=== PATIENT | male | born 1960 | race Caucasian/White ===

== ENCOUNTER 2018-12-24 19:07 | Emergency (ER) | payer OTHER ==
[~2018-12-24] VITALS: Ht 185.4 cm; Wt 116.1 kg
[2018-12-24] MEDS ORDERED: ONDANSETRON 2MG/ML, 2ML IVPush ONE (19:30)
[2018-12-24] MEDS ORDERED: KETOROLAC 30 MG/1 ML IVPush ONE (19:30)
[2018-12-24] MEDS ORDERED: MORPHINE SULFATE 4 MG/ML, 1ML IVPush PRN (19:30)
[2018-12-24] MEDS ORDERED: ONDANSETRON 2MG/ML, 2ML ONE (19:31)
[2018-12-24] MEDS ORDERED: KETOROLAC 30 MG/1 ML ONE (19:31)
[2018-12-24] MEDS ORDERED: MORPHINE SULFATE 4 MG/ML, 1ML ONE (19:31)
[2018-12-24 19:38] LABS: BASOPHILS # (AUTO) 0.05 x10^3/uL (0-0.1); BASOPHILS % (AUTO) 1 % (0-1); EOSINOPHILS # (AUTO) 0.33 x10^3/uL (0-0.4); EOSINOPHILS % (AUTO) 3 % (1-7); LYMPHOCYTES # (AUTO) 2.95 x10^3/uL (1-3.4); LYMPHOCYTES % (AUTO) 28 % (22-44); MD NO; MEAN CORPUSCULAR HEMOGLOBIN 28.4 pg (27.5-34.5); MEAN CORPUSCULAR HGB CONC 33.6 g/dL (33.2-36.2); MEAN CORPUSCULAR VOLUME 84.6 fL (81-97); MEAN PLATELET VOLUME 9.5 fL (7.4-10.4); MONOCYTES # (AUTO) 0.74 x10^3/uL (0.2-0.8); MONOCYTES % (AUTO) 7 % (2-9); NEUTROPHILS % (AUTO) 61 % (42-75); PLATELET COUNT 287 x10^3/uL (130-400); RED BLOOD COUNT 4.78 x10^6/uL (4.38-5.82); RED CELL DISTRIBUTION WIDTH 14.7 % (9.4-14.8)
[2018-12-24 19:46] LABS: ALANINE AMINOTRANSFERASE 21 U/L (12-78); ANION GAP 9 mmol/L (5-15); CALCIUM 8.6 mg/dL (8.5-10.1); CHLORIDE 106 mmol/L (98-107)
[2018-12-24 19:47] LABS: MICROSCOPIC AUTO
[2018-12-24 19:48] LABS: ALKALINE PHOSPHATASE 74 U/L (45-117); BILIRUBIN,TOTAL 0.4 mg/dL (0.2-1.0); TOTAL PROTEIN 7.6 g/dL (6.4-8.2)
[2018-12-24 19:49] LABS: CULTURE INDICATED? YES
--- NOTE | 2018-12-24 20:28 | NUR ---
ALL RESULTS BACK, PT FOR RECHECK.
--- NOTE | 2018-12-24 20:40 | NUR ---
HR 45 ON PULSE OX, HEART MONITOR PLACED SHOWING BIGEMINY WITH HR AT 90. PT DENIES CP, ONLY LIGHTHEADED FOLLOWING MORPHINE. 0/10 FLANK PAIN AT THIS TIME. ERP NOTIFIED, EKG COMPLETED AT BS.
[2018-12-24] MEDS ORDERED: CEFTRIAXONE PMX 1GM/50ML 50 ML ONE (21:09)
[2018-12-24] MEDS ORDERED: CEFTRIAXONE PMX 1GM/50ML 50 ML IV ONE (21:30)
[2018-12-24 22:03] VITALS: BP 132/58
== END 2018-12-24 22:05 | disposition home or self-care (01) ==
LOC: ED 20:19
DX: N39.0 Urinary tract infection, site not specified (principal); N20.0 Calculus of kidney; E10.22 Type 1 diabetes mellitus with diabetic chronic kidney disease; I12.9 Hypertensive chronic kidney disease with stage 1 through stage 4 chronic kidney disease, or unspecified chronic kidney disease; N18.9 Chronic kidney disease, unspecified; E78.5 Hyperlipidemia, unspecified; Z88.0 Allergy status to penicillin
CPT/HCPCS: 36415; 74176; 80053; 81001; 85025; 87077; 87086; 87186; 93005; 96365; 96375; 99284; J0696; J1885; J2405

== ENCOUNTER 2018-12-27 02:23 | Inpatient (IN) | payer OTHER ==
[~2018-12-27] VITALS: Ht 185.4 cm; Wt 111.6 kg
[2018-12-27] MEDS ORDERED: ONDANSETRON 2MG/ML, 2ML ONE ×3 (02:47→17:35)
[2018-12-27] MEDS ORDERED: MORPHINE SULFATE 4 MG/ML, 1ML ONE ×2 (02:48→04:42)
[2018-12-27] MEDS ORDERED: ONDANSETRON 2MG/ML, 2ML IVPush ONE (03:00)
[2018-12-27] MEDS: MORPHINE SULFATE 4 MG/ML, 1ML IVPush PRN ×2 (03:02→04:48)
[2018-12-27 03:04] LABS: BASOPHILS # (AUTO) 0.05 x10^3/uL (0-0.1); BASOPHILS % (AUTO) 0 % (0-1); EOSINOPHILS # (AUTO) 0.26 x10^3/uL (0-0.4); EOSINOPHILS % (AUTO) 2 % (1-7); LYMPHOCYTES # (AUTO) 2.04 x10^3/uL (1-3.4); LYMPHOCYTES % (AUTO) 17 % (22-44); MD NO; MEAN CORPUSCULAR HEMOGLOBIN 28.2 pg (27.5-34.5); MEAN CORPUSCULAR HGB CONC 33.7 g/dL (33.2-36.2); MEAN CORPUSCULAR VOLUME 83.9 fL (81-97); MEAN PLATELET VOLUME 9.2 fL (7.4-10.4); MONOCYTES # (AUTO) 0.85 x10^3/uL (0.2-0.8); MONOCYTES % (AUTO) 7 % (2-9); NEUTROPHILS % (AUTO) 73 % (42-75); PLATELET COUNT 251 x10^3/uL (130-400); RED BLOOD COUNT 4.78 x10^6/uL (4.38-5.82); RED CELL DISTRIBUTION WIDTH 14.5 % (9.4-14.8)
--- NOTE | 2018-12-27 03:07 | NUR ---
PT PLACED ON VITALS MONITOR. PT IN HOSPITAL GOWN. IV STARTED, ABLE TO DRAW LABS. PT GOING FOR US AT THIS TIME.
[2018-12-27 03:14] LABS: ALANINE AMINOTRANSFERASE 16 U/L (12-78); ALBUMIN 3.6 g/dL (3.4-5.0); ANION GAP 9 mmol/L (5-15); CALCIUM 8.6 mg/dL (8.5-10.1); CHLORIDE 109 mmol/L (98-107); CREATININE 3.21 mg/dL (0.7-1.3)
[2018-12-27 03:17] LABS: ALKALINE PHOSPHATASE 73 U/L (45-117); BILIRUBIN,TOTAL 0.3 mg/dL (0.2-1.0); TOTAL PROTEIN 7.6 g/dL (6.4-8.2)
[2018-12-27 04:21] LABS: MICROSCOPIC AUTO
[2018-12-27 04:22] LABS: CULTURE INDICATED? YES
[2018-12-27] MEDS ORDERED: METOCLOPRAMIDE 5 MG/ML, 2ML ONE (04:43)
--- NOTE | 2018-12-27 04:54 | NUR ---
PT PLACED ON 2L OF O2 PER N/C DUE TO DESATING TO 87% ON RA AFTER MORPHINE ADMIN. PT NOW SATING 96%. PT CONTINUES TO HAVE CRAMPING PAIN IN RIGHT LOWER ABD. PT MEDICATED WITH ORDERED PAIN MEDS AND NAUSEA MEDS PT ALSO STILL HAVING NAUSEA. BILAT BEDRAILS UP. CALL LIGHT WITHIN REACH. FAMILY AT BEDSIDE. WILL CONTINUE TO MONITOR.
[2018-12-27] MEDS ORDERED: METOCLOPRAMIDE 5 MG/ML, 2ML IVPush ONE (05:00)
[2018-12-27] MEDS ORDERED: AMLO10TA8 PO (06:07)
[2018-12-27] MEDS ORDERED: INSU100I11 INJ (06:07)
[2018-12-27] MEDS ORDERED: TRIA1TAB3 PO (06:07)
[2018-12-27] MEDS ORDERED: METF500T17 PO (06:07)
[2018-12-27] MEDS ORDERED: RANI150T4 PO (06:07)
[2018-12-27] MEDS ORDERED: TADA5TAB2 PO (06:07)
[2018-12-27] MEDS ORDERED: TAMS0.4C2 PO (06:08)
--- NOTE | 2018-12-27 06:09 | NUR ---
PT REPORTS IMPROVEMENT IN PAIN AFTER 2ND DOSE MORPHINE. PT STILL C/O NAUSEA. VSS. PT REMAINS ON 2L O2 PER N/C. BILAT BEDRAILS UP. CALL LIGHT WITHIN REACH.
[2018-12-27] MEDS ORDERED: ONDANSETRON 2MG/ML, 2ML IVPush PRN ×2 (06:30→08:30)
[2018-12-27] MEDS ORDERED: MORPHINE SULFATE 4 MG/ML, 1ML IVPush PRN (06:30)
--- NOTE | 2018-12-27 06:53 | NUR ---
BEDSIDE REPORT TO ELAINE SANCHEZ
--- NOTE | 2018-12-27 06:54 | NUR ---
[facility] PT UPRIGHT ON GURNEY AWAKE & CALM, RESPONDS APPROP TO STAFF, NAD, COMFORT MEASURES PROVIDED, AT BS, CALL LIGHT WITHIN REACH,
--- NOTE | 2018-12-27 07:24 | NUR ---
HOSPITAL BED REQUESTED.
--- NOTE | 2018-12-27 07:47 | NUR ---
PT REMAINS UPRIGHT ON EVAN AWAKE & CALM, RESPONDS APPROP TO STAFF, NAD, COMFORT MEASURES PROVIDED, CALL LIGHT WITHIN REACH. Pt to be admitted to [facility], room 458. Report called to DELMIS.
[2018-12-27] MEDS ORDERED: CEFTRIAXONE 1,000 MG IV SCH (08:00)
[2018-12-27 08:03] VITALS: BP 150/72
--- NOTE | 2018-12-27 08:06 | NUR ---
DR. RIVERS NOTIFIED OF PREVIOUS URINE CULTURE RESULTS
[2018-12-27] MEDS ORDERED: BISACODYL 10 MG SUPP PR PRN (08:30)
[2018-12-27] MEDS ORDERED: DOCUSATE 100 MG CAPSULE PO PRN (08:30)
[2018-12-27] MEDS ORDERED: PHARMACY INSTRUCTION MC SCH (08:30)
[2018-12-27] MEDS ORDERED: morphine SULFATE 10 MG/ML, 1ML IVPush PRN (08:30)
[2018-12-27] MEDS ORDERED: POLYETHYLENE GLYCOL 17 GM PACKET PO PRN (08:30)
[2018-12-27] MEDS ORDERED: LIDODERM 5% PATCH TD PRN (08:30)
[2018-12-27] MEDS ORDERED: ZOLPIDEM 5MG TABLET PO PRN (08:30)
[2018-12-27] MEDS ORDERED: ACETAMINOPHEN 325 MG TABLET PO PRN (08:30)
[2018-12-27] MEDS ORDERED: hydrALAzine 20 MG/ML, 1ML IVPush PRN (08:30)
[2018-12-27] MEDS ORDERED: LABETALOL 5MG/ML, 20ML IVPush PRN (08:30)
[2018-12-27] MEDS ORDERED: ONDANSETRON ODT 4 MG PO PRN (08:30)
[2018-12-27] MEDS: HEPARIN 5,000 UNITS/ML, 1ML SQ SCH ×2 (09:00→17:00)
[2018-12-27] MEDS: AMLODIPINE 10 MG TAB PO SCH (09:00)
[2018-12-27] MEDS: TAMSULOSIN 0.4 MG CAP.ER.24H PO SCH ×2 (09:00→20:19)
[2018-12-27 09:18] LABS: HCT (SEDRATE) 39.6 % (39.2-51.8)
[2018-12-27] MEDS: CEFTRIAXONE PMX 1GM/50ML 50 ML IV SCH ×2 (09:24→20:19)
[2018-12-27] MEDS: SODIUM CHLORIDE 0.9% 1,000 ML IV SCH ×2 (09:25→16:18)
[2018-12-27 09:36] LABS: FREE T4 (FREE THYROXINE) 1.09 ng/dL (0.76-1.46); THYROID STIMULATING HORMONE 4.03 mIU/L (0.358-3.740)
[2018-12-27 10:27] LABS: HEMOGLOBIN A1C 7.1 % (4.2-6.3)
[2018-12-27 12:39] VITALS: BP 156/74
[2018-12-27] MEDS ORDERED: MIDAZOLAM 1 MG/ML, 2ML ONE (16:26)
[2018-12-27] MEDS ORDERED: FENTANYL PF 250 MCG/5ML ONE (16:27)
[2018-12-27] MEDS ORDERED: ROCURONIUM 10MG/ML,5ML ONE (17:35)
[2018-12-27] MEDS ORDERED: SUCCINYLCHOLINE 20 MG/ML, 10ML ONE (17:35)
[2018-12-27] MEDS ORDERED: GLYCOPYRROLATE 0.2MG/1ML, 5ML ONE (17:35)
[2018-12-27] MEDS ORDERED: CEFAZOLIN 1,000 MG ONE (17:35)
[2018-12-27] MEDS ORDERED: PROPOFOL 10 MG/ML, 20ML ONE (17:35)
[2018-12-27] MEDS ORDERED: NEOSTIGMINE 1 MG/ML, 10ML ONE (17:35)
[2018-12-27] MEDS ORDERED: DEXAMETHASONE 4 MG/ML, 1ML ONE (17:35)
[2018-12-27 19:42] VITALS: BP 162/71
[2018-12-28 00:18] VITALS: BP 149/77
[2018-12-28] MEDS: SODIUM CHLORIDE 0.9% 1,000 ML IV SCH ×2 (01:59→15:12)
[2018-12-28] MEDS: HEPARIN 5,000 UNITS/ML, 1ML SQ SCH ×3 (01:59→17:14)
[2018-12-28 04:03] VITALS: BP 138/75
[2018-12-28 05:20] LABS: BASOPHILS # (AUTO) 0.03 x10^3/uL (0-0.1); BASOPHILS % (AUTO) 0 % (0-1); EOSINOPHILS # (AUTO) 0.01 x10^3/uL (0-0.4); EOSINOPHILS % (AUTO) 0 % (1-7); LYMPHOCYTES # (AUTO) 1.04 x10^3/uL (1-3.4); LYMPHOCYTES % (AUTO) 9 % (22-44); MD NO; MEAN CORPUSCULAR HEMOGLOBIN 28.4 pg (27.5-34.5); MEAN CORPUSCULAR HGB CONC 33.7 g/dL (33.2-36.2); MEAN CORPUSCULAR VOLUME 84.2 fL (81-97); MEAN PLATELET VOLUME 9.7 fL (7.4-10.4); MONOCYTES # (AUTO) 0.79 x10^3/uL (0.2-0.8); MONOCYTES % (AUTO) 7 % (2-9); NEUTROPHILS # (AUTO) 9.88 x10^3/uL (1.8-6.8); NEUTROPHILS % (AUTO) 84 % (42-75); PLATELET COUNT 230 x10^3/uL (130-400); RED BLOOD COUNT 4.32 x10^6/uL (4.38-5.82); RED CELL DISTRIBUTION WIDTH 14.8 % (9.4-14.8)
[2018-12-28 05:32] LABS: ANION GAP 6 mmol/L (5-15); CALCIUM 8.4 mg/dL (8.5-10.1); CHLORIDE 109 mmol/L (98-107); CREATININE 2.23 mg/dL (0.7-1.3)
[2018-12-28 05:39] LABS: CHOLESTEROL, TOTAL 137 mg/dL (140-239); HDL CHOL % 34 % (26-37); HDL CHOLESTEROL (DIRECT) 46 mg/dL (40-60); LDL CHOLESTEROL,CALCULATED 74 mg/dL (54-169); LDL/HDL RATIO 1.6 (0.5-3.0); TRIGLYCERIDES 87 mg/dL (50-200); VLDL CHOLESTEROL 17 mg/dL (0-25)
[2018-12-28] MEDS: PANTOPRAZOLE 40 MG IV IVPush SCH (08:39)
[2018-12-28] MEDS: AMLODIPINE 10 MG TAB PO SCH (08:39)
[2018-12-28] MEDS: TAMSULOSIN 0.4 MG CAP.ER.24H PO SCH ×2 (08:39→19:46)
[2018-12-28] MEDS: CEFTRIAXONE PMX 1GM/50ML 50 ML IV SCH (08:40)
[2018-12-28 09:17] VITALS: BP 153/70
[2018-12-28 13:47] VITALS: BP 125/60
[2018-12-28] MEDS: DOXYCYCLINE 100MG CAP PO SCH (19:47)
[2018-12-28 19:49] VITALS: BP 133/64
[2018-12-29] MEDS: SODIUM CHLORIDE 0.9% 1,000 ML IV SCH ×2 (00:46→08:30)
[2018-12-29] MEDS: HEPARIN 5,000 UNITS/ML, 1ML SQ SCH ×2 (00:46→09:56)
[2018-12-29 00:56] VITALS: BP 144/69
[2018-12-29 05:25] LABS: BASOPHILS # (AUTO) 0.04 x10^3/uL (0-0.1); BASOPHILS % (AUTO) 0 % (0-1); EOSINOPHILS # (AUTO) 0.17 x10^3/uL (0-0.4); EOSINOPHILS % (AUTO) 2 % (1-7); LYMPHOCYTES # (AUTO) 2.86 x10^3/uL (1-3.4); LYMPHOCYTES % (AUTO) 28 % (22-44); MD NO; MEAN CORPUSCULAR HEMOGLOBIN 28.4 pg (27.5-34.5); MEAN CORPUSCULAR HGB CONC 33.2 g/dL (33.2-36.2); MEAN CORPUSCULAR VOLUME 85.7 fL (81-97); MEAN PLATELET VOLUME 9.7 fL (7.4-10.4); MONOCYTES # (AUTO) 0.92 x10^3/uL (0.2-0.8); MONOCYTES % (AUTO) 9 % (2-9); NEUTROPHILS % (AUTO) 60 % (42-75); PLATELET COUNT 216 x10^3/uL (130-400); RED BLOOD COUNT 4.01 x10^6/uL (4.38-5.82); RED CELL DISTRIBUTION WIDTH 15.1 % (9.4-14.8)
[2018-12-29 05:39] LABS: ANION GAP 5 mmol/L (5-15); CALCIUM 8.1 mg/dL (8.5-10.1); CHLORIDE 112 mmol/L (98-107); CREATININE 1.92 mg/dL (0.7-1.3)
[2018-12-29 08:31] VITALS: BP 164/68
[2018-12-29] MEDS: DOXYCYCLINE 100MG CAP PO SCH (09:53)
[2018-12-29] MEDS: TAMSULOSIN 0.4 MG CAP.ER.24H PO SCH (09:53)
[2018-12-29] MEDS: AMLODIPINE 10 MG TAB PO SCH (09:53)
[2018-12-29] MEDS: PANTOPRAZOLE 40 MG IV IVPush SCH (09:55)
[2018-12-29] MEDS ORDERED: DOXY100C2 PO (11:07)
[2018-12-29] MEDS ORDERED: ACET325T14 PO (11:07)
[2018-12-29 11:50] VITALS: BP 140/69
== END 2018-12-29 14:40 | disposition home or self-care (01) | DRG 661 ==
LOC: ED 02:54 → EDIP 06:29 → 4NOR 08:03 → DCLOUNGE 12-29 14:25
PROVIDERS: ADMIT Hospitalist; ATTEND Hospitalist
PROC: 0TC68ZZ Extirpation of Matter from Right Ureter, Via Natural or Artificial Opening Endoscopic (ICD-10-PCS; principal; 2018-12-28)
PROC: 0T768DZ Dilation of Right Ureter with Intraluminal Device, Via Natural or Artificial Opening Endoscopic (ICD-10-PCS; 2018-12-28)
DX: N13.2 Hydronephrosis with renal and ureteral calculous obstruction (principal); N17.9 Acute kidney failure, unspecified; E11.22 Type 2 diabetes mellitus with diabetic chronic kidney disease; E78.5 Hyperlipidemia, unspecified; G47.33 Obstructive sleep apnea (adult) (pediatric); I12.9 Hypertensive chronic kidney disease with stage 1 through stage 4 chronic kidney disease, or unspecified chronic kidney disease; K21.9 Gastro-esophageal reflux disease without esophagitis; N18.9 Chronic kidney disease, unspecified; N30.20 Other chronic cystitis without hematuria; N40.0 Benign prostatic hyperplasia without lower urinary tract symptoms; Z79.4 Long term (current) use of insulin; Z88.8 Allergy status to other drugs, medicaments and biological substances
CPT/HCPCS: 36415; 74018; 76000; 99285; J3490; 74176; 76770; 80048; 80053; 80061; 81001; 82962; 83036; 83690; 84439; 84443; 85025; 85651; 86140; 87040; 87086; 96374; 96375; 96376; G0378; J0690; J0696; J1100; J1644; J2250; J2405; J2704; J2710; J3010; Q0162; C1758; C1769; C2617; C9113; J0330; J2765; J7030